=== PATIENT | male | born 1950 | race Caucasian/White ===

== ENCOUNTER 2020-02-27 13:23 | Emergency (ER) | payer MEDICARE, OTHER ==
[~2020-02-27] VITALS: Ht 162.6 cm; Wt 66.3 kg
[2020-02-27] MEDS ORDERED: DOCU-275 PO (14:07)
[2020-02-27] MEDS ORDERED: FINA-27 PO (14:07)
[2020-02-27] MEDS ORDERED: BACL10TA PO (14:07)
[2020-02-27] MEDS ORDERED: CELE200 PO (14:07)
[2020-02-27] MEDS ORDERED: ESCI-8 PO (14:10)
[2020-02-27] MEDS ORDERED: TAMS-13 PO (14:10)
[2020-02-27] MEDS ORDERED: PANT-31 PO (14:10)
[2020-02-27] MEDS ORDERED: GABA-1216 PO (14:10)
[2020-02-27] MEDS ORDERED: CHOL125C2 PO (14:10)
[2020-02-27 16:17] VITALS: BP 144/77
== END 2020-02-27 16:22 | disposition home or self-care (01) ==
LOC: EMS 13:25
DX: F15.10 Other stimulant abuse, uncomplicated (principal); F17.210 Nicotine dependence, cigarettes, uncomplicated; Z91.030 Bee allergy status; Z91.013 Allergy to seafood

== ENCOUNTER 2022-10-10 23:53 | Emergency (ER) | payer MEDICARE, OTHER ==
[~2022-10-10] VITALS: Ht 162.6 cm; Wt 70.0 kg
[~2022-10-10 23:53] MED LIST: BACL10TA PO; CELE200 PO; CHOL500013 PO; DOCU-385 PO; ESCI-8 PO; FINA-27 PO; GABA-1216 PO; PANT-31 PO; TAMS-13 PO
[2022-10-11 00:44] VITALS: BP 130/86
== END 2022-10-11 06:56 | disposition home or self-care (01) ==
LOC: EMS 23:53
DX: F69 Unspecified disorder of adult personality and behavior (principal); F25.9 Schizoaffective disorder, unspecified; F10.20 Alcohol dependence, uncomplicated; M19.90 Unspecified osteoarthritis, unspecified site; F17.210 Nicotine dependence, cigarettes, uncomplicated; F15.90 Other stimulant use, unspecified, uncomplicated; Z91.013 Allergy to seafood
CPT/HCPCS: 99284; Z7502

== ENCOUNTER 2022-12-26 16:38 | Inpatient (IN) | payer MEDICARE, MEDICAID ==
[~2022-12-26] VITALS: Ht 162.6 cm; Wt 68.2 kg
[2022-12-26 18:03] LABS: BASOPHILS % (AUTO) 0.7 % (0.0-2.0); EOSINOPHILS % (AUTO) 1.4 % (1.0-6.0); HEMATOCRIT 45.5 % (41-53); HEMOGLOBIN 15.5 g/dL (13.5-17.5); LYMPHOCYTES # (AUTO) 2.4 K/uL (1.0-4.8); LYMPHOCYTES % (AUTO) 24.9 % (22.0-44.0); MEAN CORPUSCULAR HEMOGLOBIN 30.6 pg (26.0-34.0); MEAN CORPUSCULAR HGB CONC 34.1 G/dL (31.0-37.0); MEAN CORPUSCULAR VOLUME 90 fL (80-100); MONOCYTES # (AUTO) 0.6 K/uL (0.1-1.0); MONOCYTES % (AUTO) 5.8 % (2.0-9.0); NEUTROPHILS # (AUTO) 6.6 K/uL (1.8-7.7); NEUTROPHILS % (AUTO) 67.2 % (40.0-70.0); PLATELET COUNT (AUTO) 323 K/uL (150-450); RED BLOOD CELL COUNT(AUTO) 5.07 MIL/uL (4.50-5.90); RED CELL DISTRIBUTION WIDTH 14.2 % (11.5-14.5)
[2022-12-26 18:13] LABS: ANION GAP 13 mmol/L (8-16); CALCIUM, TOTAL 9.4 mg/dL (8.8-10.5); CARBON DIOXIDE 27 mmol/L (22-29); CHLORIDE 102 mmol/L (98-107); CREATININE 1.04 mg/dL (0.60-1.30); GLOMERULAR FILTR. RATE CALC > 60 mL/min (>60); GLUCOSE,RANDOM 112 mg/dL (70-110); POTASSIUM 4.1 mmol/L (3.5-5.1); SODIUM SERUM 141 mmol/L (136-145)
[2022-12-26 18:27] LABS: ALANINE AMINOTRANSFERASE 16 U/L (12-78); ALBUMIN 3.6 g/dL (3.4-5.0); ALKALINE PHOSPHATASE 98 U/L (46-116); ASPARTATE AMINOTRANSFERASE 13 U/L (15-37); BILIRUBIN,TOTAL 0.4 mg/dL (0.1-1.0); TOTAL PROTEIN, SERUM 7.7 g/dL (6.4-8.2)
[2022-12-26 18:31] LABS: AMPHET/METH SCREEN,URINE NEGATIVE (NEGATIVE); BARBITURATE SCREEN, URINE NEGATIVE (NEGATIVE); BENZODIAZEPINES SCREEN,URINE NEGATIVE (NEGATIVE); CANNABINOID SCREEN,URINE NEGATIVE (NEGATIVE); COCAINE SCREEN,URINE NEGATIVE (NEGATIVE); METHADONE SCREEN, URINE NEGATIVE (NEGATIVE); OPIATE SCREEN,URINE NEGATIVE (NEGATIVE); PHENCYCLIDINE SCREEN,URINE NEGATIVE (NEGATIVE)
[2022-12-26] MEDS ORDERED: GABAPENTIN 400 MG CAPSULE PO ONE (19:00)
[2022-12-26] MEDS ORDERED: OxyCODONE HCL 5 MG IR TABLET PO ONE (19:00)
[2022-12-26 19:19] LABS: COVID AG,FIA SOURCE NASAL SWAB
[2022-12-26] MEDS ORDERED: ZOLPIDEM TARTRATE 10 MG TABLET PO PRN (20:15)
[2022-12-26] MEDS ORDERED: LORazepam 2 MG TABLET PO PRN (20:15)
[2022-12-26] MEDS ORDERED: HALOPERIDOL 5 MG TABLET PO PRN (20:15)
[2022-12-27] MEDS ORDERED: ACETAMINOPHEN 500 MG TABLET PO ONE ×2 (01:30→22:45)
[2022-12-27] MEDS ORDERED: ACETAMINOPHEN 500 MG TABLET PO PRN (06:30)
[2022-12-27] MEDS: GABAPENTIN 300 MG CAPSULE PO SCH ×2 (09:45→20:26)
[2022-12-27] MEDS ORDERED: GABAPENTIN 100 MG CAPSULE PO ONE (12:15)
[2022-12-28 08:17] LABS: GLUCOMETER DEV NAME(LOC) ER.6
[2022-12-28] MEDS: GABAPENTIN 300 MG CAPSULE PO SCH ×2 (08:38→20:20)
[2022-12-28] MEDS: TAMSULOSIN HCL 0.4 MG CAPSULE PO SCH (13:31)
[2022-12-28] MEDS: ACETAMINOPHEN 500 MG TABLET PO PRN ×2 (15:33→20:20)
[2022-12-29] MEDS: ACETAMINOPHEN 500 MG TABLET PO PRN ×2 (05:52→13:09)
[2022-12-29] MEDS: TAMSULOSIN HCL 0.4 MG CAPSULE PO SCH ×2 (08:23→20:31)
[2022-12-29] MEDS: GABAPENTIN 300 MG CAPSULE PO SCH ×2 (08:23→17:23)
[2022-12-29 15:44] VITALS: BP 158/88; PULSE 86; RESP 18; TEMP 97.6
[2022-12-29] MEDS ORDERED: DOCUSATE SODIUM 100 MG CAPSULE PO PRN (17:00)
[2022-12-29] MEDS ORDERED: ONDANSETRON HCL 4 MG TABLET PO PRN (17:00)
[2022-12-29] MEDS ORDERED: GuaiFENesin/D-METHORPHAN [SUGAR-FREE] 200-20MG/10 ML SYRUP UDCUP PO PRN (17:00)
[2022-12-29] MEDS ORDERED: LOPERAMIDE HCL 2 MG CAPSULE PO PRN (17:00)
[2022-12-29] MEDS ORDERED: MAGNESIUM HYDROXIDE SUSPENSION 30 ML UDCUP PO PRN (17:00)
[2022-12-29] MEDS ORDERED: ALBUTEROL SULFATE HFA 90 MCG/PUFF 8 GM INHALER IH PRN (17:00)
[2022-12-29] MEDS ORDERED: CloNIDine HCL 0.1 MG TABLET PO PRN (17:00)
[2022-12-29] MEDS ORDERED: PNEUMOCOCCAL VACCINE POLYVALENT 0.5 ML VIAL [PPSV23] IM. ONE (17:00)
[2022-12-29] MEDS ORDERED: ACETAMINOPHEN 325 MG TABLET PO PRN (17:00)
[2022-12-29] MEDS ORDERED: NICOTINE 14 MG/24 HOUR PATCH TD PRN (17:00)
[2022-12-29] MEDS ORDERED: PETROLATUM,WHITE 28 GM JELLY TP PRN (17:00)
[2022-12-29] MEDS ORDERED: MAG HYDROX/AL HYDROX/SIMETH ES 30 ML SUSPENSION UDCUP PO PRN (17:00)
[2022-12-29] MEDS: CELECOXIB 200 MG CAPSULE PO SCH (17:21)
[2022-12-29] MEDS: BACLOFEN 10 MG TABLET PO SCH (17:23)
[2022-12-29] MEDS: BACITRACIN 28 GM OINTMENT TP SCH (17:40)
[2022-12-29 21:38] VITALS: BP 137/78; PULSE 71; RESP 18; TEMP 98.1
[2022-12-29 22:55] VITALS: BP 130/82; PULSE 79; RESP 19; TEMP 97.5
[2022-12-29] MEDS: IBUPROFEN 400 MG TABLET PO PRN (22:58)
[2022-12-29 23:58] VITALS: RESP 18
[2022-12-30] MEDS: PANTOPRAZOLE SODIUM 40 MG DR TABLET PO SCH (06:53)
[2022-12-30 08:10] LABS: HEMOGLOBIN A1C 5.4 % (3.8-5.6)
[2022-12-30] MEDS: GABAPENTIN 300 MG CAPSULE PO SCH ×2 (08:24→16:54)
[2022-12-30] MEDS: BACITRACIN 28 GM OINTMENT TP SCH ×2 (08:24→16:57)
[2022-12-30] MEDS: BACLOFEN 10 MG TABLET PO SCH ×2 (08:25→17:00)
[2022-12-30] MEDS: CHOLECALCIFEROL (VIT D3) 5,000 [125 MCG] UNITS CAPSULE PO SCH (08:25)
[2022-12-30] MEDS: FINASTERIDE 5 MG TABLET PO SCH (08:25)
[2022-12-30] MEDS: CELECOXIB 200 MG CAPSULE PO SCH ×2 (08:25→16:54)
[2022-12-30 08:28] VITALS: BP 138/71; PULSE 63; RESP 18; TEMP 97.8
[2022-12-30 08:28] LABS: CHOL/HDL RATIO 4.4 (4.2-7.3)
[2022-12-30] MEDS: IBUPROFEN 400 MG TABLET PO PRN ×2 (08:28→16:58)
[2022-12-30 08:38] VITALS: BP 138/71; PULSE 63; RESP 18; TEMP 97.8
[2022-12-30 09:28] VITALS: BP 128/76; PULSE 64; RESP 18; TEMP 97.4
[2022-12-30] MEDS: OLANZapine 5 MG TABLET PO SCH ×2 (12:30→20:54)
[2022-12-30] MEDS: VALPROIC ACID 250 MG CAPSULE PO SCH (16:54)
[2022-12-30 16:58] VITALS: BP 106/68; PULSE 68; RESP 18; TEMP 97.3
[2022-12-30] MEDS: BusPIRone HCL 10 MG TABLET PO SCH (17:00)
[2022-12-30 17:58] VITALS: BP 112/70; PULSE 72; RESP 18; TEMP 97.4
[2022-12-30 20:05] VITALS: RESP 20
[2022-12-30] MEDS: TAMSULOSIN HCL 0.4 MG CAPSULE PO SCH (20:54)
[2022-12-31 03:30] VITALS: BP 112/62; PULSE 66; RESP 18; TEMP 97.5
[2022-12-31] MEDS: IBUPROFEN 400 MG TABLET PO PRN ×3 (03:30→21:48)
[2022-12-31 04:30] VITALS: RESP 18
[2022-12-31] MEDS: PANTOPRAZOLE SODIUM 40 MG DR TABLET PO SCH (07:08)
[2022-12-31 08:14] VITALS: BP 144/60; PULSE 54; RESP 18; TEMP 97.6
[2022-12-31] MEDS: VALPROIC ACID 250 MG CAPSULE PO SCH ×2 (08:36→15:50)
[2022-12-31] MEDS: CELECOXIB 200 MG CAPSULE PO SCH ×2 (08:36→15:50)
[2022-12-31] MEDS: FINASTERIDE 5 MG TABLET PO SCH (08:36)
[2022-12-31] MEDS: CHOLECALCIFEROL (VIT D3) 5,000 [125 MCG] UNITS CAPSULE PO SCH (08:36)
[2022-12-31] MEDS: GABAPENTIN 300 MG CAPSULE PO SCH ×2 (08:38→15:51)
[2022-12-31] MEDS: BACLOFEN 10 MG TABLET PO SCH ×2 (08:39→15:51)
[2022-12-31] MEDS: OLANZapine 5 MG TABLET PO SCH ×2 (08:50→21:30)
[2022-12-31] MEDS: BusPIRone HCL 10 MG TABLET PO SCH ×2 (08:51→17:00)
[2022-12-31] MEDS: BACITRACIN 28 GM OINTMENT TP SCH ×2 (08:55→17:13)
[2022-12-31 20:06] VITALS: RESP 20
[2022-12-31] MEDS: TAMSULOSIN HCL 0.4 MG CAPSULE PO SCH (21:30)
[2022-12-31 21:45] VITALS: BP 128/70; PULSE 71; RESP 18; TEMP 97.2
[2022-12-31 22:48] VITALS: RESP 19
[2023-01-01 06:05] VITALS: BP 120/80; PULSE 80; RESP 18; TEMP 98
[2023-01-01] MEDS: IBUPROFEN 400 MG TABLET PO PRN ×2 (06:11→15:28)
[2023-01-01] MEDS: PANTOPRAZOLE SODIUM 40 MG DR TABLET PO SCH (06:29)
[2023-01-01 07:11] VITALS: RESP 17
[2023-01-01 08:41] VITALS: BP 153/64; PULSE 58; RESP 17; TEMP 97.6
[2023-01-01] MEDS: GABAPENTIN 300 MG CAPSULE PO SCH ×2 (08:42→16:48)
[2023-01-01] MEDS: OLANZapine 5 MG TABLET PO SCH ×2 (08:42→20:34)
[2023-01-01] MEDS: BACLOFEN 10 MG TABLET PO SCH ×3 (08:43→16:58)
[2023-01-01] MEDS: CELECOXIB 200 MG CAPSULE PO SCH ×2 (08:44→16:49)
[2023-01-01] MEDS: BACITRACIN 28 GM OINTMENT TP SCH ×2 (08:44→16:48)
[2023-01-01] MEDS: VALPROIC ACID 250 MG CAPSULE PO SCH ×2 (08:44→16:50)
[2023-01-01] MEDS: FINASTERIDE 5 MG TABLET PO SCH (08:45)
[2023-01-01] MEDS: CHOLECALCIFEROL (VIT D3) 5,000 [125 MCG] UNITS CAPSULE PO SCH (08:45)
[2023-01-01] MEDS: BusPIRone HCL 10 MG TABLET PO SCH ×2 (08:47→16:50)
[2023-01-01 15:28] VITALS: BP 128/64; PULSE 58; RESP 18; TEMP 96.7
[2023-01-01 16:28] VITALS: BP 102/62; PULSE 69; RESP 18; TEMP 97.9
[2023-01-01 20:04] VITALS: BP 109/77; PULSE 66; RESP 18; TEMP 97.3
[2023-01-01] MEDS: TAMSULOSIN HCL 0.4 MG CAPSULE PO SCH (20:34)
[2023-01-02 01:28] VITALS: BP 120/80; PULSE 72; RESP 19; TEMP 97.8
[2023-01-02] MEDS: IBUPROFEN 400 MG TABLET PO PRN ×2 (01:32→12:13)
[2023-01-02 02:32] VITALS: RESP 18
[2023-01-02] MEDS: PANTOPRAZOLE SODIUM 40 MG DR TABLET PO SCH (06:37)
[2023-01-02] MEDS: CHOLECALCIFEROL (VIT D3) 5,000 [125 MCG] UNITS CAPSULE PO SCH (08:16)
[2023-01-02] MEDS: FINASTERIDE 5 MG TABLET PO SCH (08:16)
[2023-01-02] MEDS: BACITRACIN 28 GM OINTMENT TP SCH ×2 (08:16→16:19)
[2023-01-02] MEDS: VALPROIC ACID 250 MG CAPSULE PO SCH ×2 (08:16→16:18)
[2023-01-02] MEDS: CELECOXIB 200 MG CAPSULE PO SCH ×2 (08:17→16:19)
[2023-01-02] MEDS: BusPIRone HCL 10 MG TABLET PO SCH ×2 (08:19→16:18)
[2023-01-02] MEDS: OLANZapine 5 MG TABLET PO SCH (08:19)
[2023-01-02] MEDS: GABAPENTIN 300 MG CAPSULE PO SCH ×2 (08:19→16:19)
[2023-01-02] MEDS: BACLOFEN 10 MG TABLET PO SCH ×2 (08:19→16:18)
[2023-01-02 08:37] VITALS: BP 152/69; PULSE 55; RESP 17; TEMP 97.6
[2023-01-02 12:13] VITALS: BP 146/71; PULSE 67; RESP 17; TEMP 98
[2023-01-02] MEDS ORDERED: OLAN5TAB52 PO (16:48)
[2023-01-02] MEDS ORDERED: VALP250C48 PO (16:48)
[2023-01-02] MEDS ORDERED: BUSP10TA23 PO (16:48)
== END 2023-01-02 19:10 | DRG 885 ==
LOC: EMS 16:49 → 3EC 12-29 13:08
PROVIDERS: ADMIT Psychiatry & Neurology Psychiatry; ATTEND Psychiatry & Neurology Psychiatry
PROC: 3E0234Z Introduction of Serum, Toxoid and Vaccine into Muscle, Percutaneous Approach (ICD-10-PCS; principal; 2022-12-29)
DX: F25.0 Schizoaffective disorder, bipolar type (principal); M48.00 Spinal stenosis, site unspecified; F17.210 Nicotine dependence, cigarettes, uncomplicated; K21.9 Gastro-esophageal reflux disease without esophagitis; Z20.822 Contact with and (suspected) exposure to COVID-19; G89.29 Other chronic pain; M19.90 Unspecified osteoarthritis, unspecified site; N40.0 Benign prostatic hyperplasia without lower urinary tract symptoms; E56.9 Vitamin deficiency, unspecified; G62.9 Polyneuropathy, unspecified; Z91.013 Allergy to seafood; Z91.030 Bee allergy status; Z79.899 Other long term (current) drug therapy; Z59.00 Homelessness unspecified
CPT/HCPCS: 80053; 80061; 80307; 82962; 83036; 84443; 85025; 87081; 99285; G0480